=== PATIENT | male | born 1970 | race Two or more races ===

== ENCOUNTER 2016-03-22 08:06 | Emergency (ER) | payer OTHER ==
[~2016-03-22] VITALS: Ht 177.8 cm; Wt 60.3 kg
[2016-03-22] MEDS ORDERED: IBUPROFEN 600 MG TABLET PO ONE (09:00)
[2016-03-22] MEDS ORDERED: ACETAMINOPHEN ES 500 MG TABLET PO ONE (09:00)
[2016-03-22 09:05] VITALS: BP 137/67
== END 2016-03-22 09:04 | disposition home or self-care (01) ==
LOC: ER 08:08
DX: J11.1 Influenza due to unidentified influenza virus with other respiratory manifestations (principal); Z88.6 Allergy status to analgesic agent
CPT/HCPCS: 99283; A4606; Z7610